=== PATIENT | male | born 1980 | race Caucasian/White ===

== ENCOUNTER 2020-11-03 18:40 | Inpatient (IN) | payer MEDICAID, OTHER ==
[~2020-11-03] VITALS: Ht 175.3 cm; Wt 125.2 kg
[2020-11-03] MEDS ORDERED: SODIUM CHLORIDE 0.9% 500 ML IV ONE (20:15)
[2020-11-03 20:30] LABS: BASOPHILS % 0.2 % (0.0-2.0); HEMOGLOBIN. 16.4 g/dL (14.0-18.0); LYMPHOCYTES % 11.4 % (20.0-50.0); MEAN CORPUSCULAR HEMOGLOBIN 31.4 pg (28.0-32.0); MEAN CORPUSCULAR VOLUME 90.1 fL (80.0-94.0); MEAN PLATELET VOLUME 9.4 fl (7.4-10.4); MONOCYTES % 7.6 % (2.0-8.0); NEUTROPHILS % 80.8 % (40.0-76.0); PLATELET 185 x1000/uL (130-400); RED BLOOD CELL COUNT 5.22 mill/uL (4.7-6.1); RED CELL DISTRIBUTION WIDTH 13.5 % (11.6-14.6)
[2020-11-03 20:36] LABS: CHLORIDE 94 mEq/L (98-107)
[2020-11-03 20:41] LABS: D-DIMER 1.51 mg/L FEU (<0.50); INR 1.2
[2020-11-03] MEDS ORDERED: AZITHROMYCIN 500 MG in DEXT 5% WATER 250 ML IV SCH (21:15)
[2020-11-03] MEDS ORDERED: CEFTRIAXONE 1 G PREMIX 50 ML IV ONE (21:15)
[2020-11-03 22:14] LABS: CLARITY URINE CLEAR (CLEAR); COLOR URINE DARK YELLOW (YELLOW); KETONES URINE NEGATIVE (NEGATIVE); LEUKOCYTE ESTERASE URINE TRACE (NEGATIVE); NITRITE URINE NEGATIVE (NEGATIVE); OCCULT BLOOD URINE 2+ (NEGATIVE); PH URINE 5.5 (4.5-8.0); PROTEIN URINE 3+ (NEGATIVE); SPECIFIC GRAVITY URINE 1.021 (1.005-1.030)
[2020-11-04] MEDS ORDERED: DEXAMETHASONE 4MG/ML 1ML VIAL IV NR
[2020-11-04] MEDS ORDERED: IOHEXOL-350 100 ML BOTTLE ONE (03:02)
[2020-11-04] MEDS ORDERED: NA PHOS,M-B/NA PHOS,DI-BA ENEMA 118ML PR PRN (10:30)
[2020-11-04] MEDS ORDERED: CEFTRIAXONE 1 G PREMIX 50 ML IV SCH (10:30)
[2020-11-04] MEDS ORDERED: ACETAMINOPHEN 650MG SUPP PR PRN ×2 (10:30)
[2020-11-04] MEDS ORDERED: CLONIDINE 0.1MG TABLET PO PRN (10:30)
[2020-11-04] MEDS ORDERED: ENOXAPARIN 40MG/0.4ML SYR SUBCUT SCH (10:30)
[2020-11-04] MEDS ORDERED: DOCUSATE SODIUM 100MG CAPSULE PO PRN (10:30)
[2020-11-04] MEDS ORDERED: ONDANSETRON HCL 4MG/2ML INJ IV PRN (10:30)
[2020-11-04] MEDS ORDERED: MAGNESIUM/ALUMINUM HYDROXIDE/SIMETHICONE 30ML UDC PO PRN (10:30)
[2020-11-04] MEDS: ENOXAPARIN 40MG/0.4ML SYR SUBCUT SCH ×2 (12:03→22:16)
[2020-11-04] MEDS ORDERED: CEFTRIAXONE SODIUM 1 G/VIAL ONE (12:06)
[2020-11-04] MEDS: CEFTRIAXONE 1,000 MG in DEXTROSE 5% WATER 50 ML IV SCH (12:17)
[2020-11-04] MEDS: AZITHROMYCIN 500 MG in DEXT 5% WATER 250 ML IV SCH (12:59)
[2020-11-04 20:48] VITALS: BP 103/64
[2020-11-04] MEDS ORDERED: DEXTROSE 50% WATER 50ML SYRINGE IV PRN (22:15)
[2020-11-04] MEDS ORDERED: POTASSIUM CHLORIDE 20MEQ TABLET SR PO NR (22:15)
[2020-11-04] MEDS: QUETIAPINE FUMARATE 25MG TABLET PO SCH (22:17)
[2020-11-04] MEDS: ASCORBIC ACID 500 MG TABLET PO SCH (22:17)
[2020-11-04] MEDS ORDERED: LISI40TA13 PO (23:12)
[2020-11-04] MEDS ORDERED: FURO80TA3 PO (23:12)
[2020-11-04] MEDS ORDERED: ATOR40TA70 PO (23:12)
[2020-11-04] MEDS ORDERED: CARV25TA47 PO (23:12)
[2020-11-04] MEDS ORDERED: ATORVASTATIN (23:12)
[2020-11-04] MEDS ORDERED: ASPI-1406 PO (23:12)
[2020-11-04] MEDS ORDERED: EMPA25TA PO (23:12)
[2020-11-04] MEDS ORDERED: METF-416 PO (23:13)
[2020-11-04 23:31] LABS: CREATINE KINASE MB FRACTION 2.3 ng/mL (0.5-3.6)
[2020-11-05] VITALS: BP 115/64
[2020-11-05] MEDS: DIPHENHYDRAMINE 50MG/ML VIAL IV PRN ×2 (00:50→21:11)
[2020-11-05 04:00] VITALS: BP 103/57
[2020-11-05] MEDS: BLOOD SUGAR DIAGNOSTIC STRIP TEST SCH ×4 (07:19→21:10)
[2020-11-05 07:26] LABS: HEMATOCRIT. 48.9 % (42.0-52.0); HEMOGLOBIN. 16.3 g/dL (14.0-18.0); MEAN CORPUSCULAR HEMOGLOBIN 30.3 pg (28.0-32.0); MEAN CORPUSCULAR VOLUME 90.8 fL (80.0-94.0); MEAN PLATELET VOLUME 10.2 fl (7.4-10.4); PLATELET 195 x1000/uL (130-400); RED BLOOD CELL COUNT 5.39 mill/uL (4.7-6.1); RED CELL DISTRIBUTION WIDTH 13.7 % (11.6-14.6)
[2020-11-05 07:39] LABS: CHLORIDE 95 mEq/L (98-107)
[2020-11-05 07:47] LABS: LDL CHOLESTEROL 75 mg/dL (5-100)
[2020-11-05 07:50] LABS: HDL CHOLESTEROL 13 mg/dL (40-59)
[2020-11-05 08:00] VITALS: BP 95/59
[2020-11-05] MEDS: QUETIAPINE FUMARATE 25MG TABLET PO SCH ×3 (08:08→21:09)
[2020-11-05] MEDS: DEXAMETHASONE 10 MG/ML VIAL IV SCH (08:08)
[2020-11-05] MEDS: ASCORBIC ACID 500 MG TABLET PO SCH ×2 (08:08→21:09)
[2020-11-05] MEDS: ENOXAPARIN 40MG/0.4ML SYR SUBCUT SCH ×2 (08:08→21:10)
[2020-11-05] MEDS: ASPIRIN 81MG TABLET PO SCH (08:08)
[2020-11-05] MEDS: INSULIN LISPRO 100 UNITS/ML SUBCUT SCH ×4 (08:10→21:10)
[2020-11-05] MEDS ORDERED: DEXAMETHASONE 10 MG/ML VIAL IV SCH (09:00)
[2020-11-05] MEDS ORDERED: FAMOTIDINE 20MG/2ML VIAL IV SCH (09:00)
[2020-11-05] MEDS ORDERED: ERGOCALCIFEROL 50000UNITS CAPSULE PO SCH (09:00)
[2020-11-05 10:27] LABS: BG BASE EXCESS 0.7 mmol/L (-2.0-2.0); BG CARBOXYHEMOGLOBIN 0.2 % (0.5-1.5); BG DEOXYHEMOGLOBIN 5.9 % (0.0-5.0); BG FRACTION INSPIRED OXYGEN 100; BG HCO3 ACT 23.3 mmol/L (22.0-26.0); BG METHEMOGLOBIN 0.3 % (0.0-1.5); BG OXYGEN SATURATION 94.1 % (92.0-98.5); BG OXYHEMOGLOBIN 93.6 % (94.0-97.0); BG PCO2 32.5 mmHg (35.0-45.0); BG PH 7.474 (7.350-7.450); BG PO2 67.8 mmHg (75.0-100.0); BG SAMPLE SITE RIGHT RADIAL; BG TOTAL HEMOGLOBIN 16.8 g/dL (12.0-18.0); BG VENT MODE MASK - NRB
[2020-11-05] MEDS: AZITHROMYCIN 500 MG in DEXT 5% WATER 250 ML IV SCH (10:34)
[2020-11-05] MEDS ORDERED: POTASSIUM CHLORIDE 20MEQ TABLET SR PO NR (11:00)
[2020-11-05] MEDS: GUAIFENESIN 200MG/10ML SUGAR FREE UDC PO PRN (11:44)
[2020-11-05] MEDS: CEFTRIAXONE 1,000 MG in DEXTROSE 5% WATER 50 ML IV SCH (11:44)
[2020-11-05 12:00] VITALS: BP 105/71
[2020-11-05] MEDS: FUROSEMIDE 40MG TABLET PO SCH (14:50)
[2020-11-05 16:00] VITALS: BP 104/69
[2020-11-05 20:00] VITALS: BP 112/65
[2020-11-05] MEDS: FAMOTIDINE 20MG TABLET PO SCH (21:09)
[2020-11-05 22:22] LABS: PLATELET ESTIMATE NORMAL
[2020-11-06] VITALS: BP 95/47
[2020-11-06 04:00] VITALS: BP 109/61
[2020-11-06] MEDS: GUAIFENESIN 200MG/10ML SUGAR FREE UDC PO PRN ×2 (05:31→10:17)
[2020-11-06 08:00] VITALS: BP 119/77
[2020-11-06] MEDS: BLOOD SUGAR DIAGNOSTIC STRIP TEST SCH ×4 (08:16→21:34)
[2020-11-06] MEDS: QUETIAPINE FUMARATE 25MG TABLET PO SCH (08:23)
[2020-11-06] MEDS: FAMOTIDINE 20MG TABLET PO SCH ×2 (08:24→21:40)
[2020-11-06] MEDS: ASPIRIN 81MG TABLET PO SCH (08:24)
[2020-11-06] MEDS: ASCORBIC ACID 500 MG TABLET PO SCH ×2 (08:24→21:40)
[2020-11-06] MEDS: FUROSEMIDE 40MG TABLET PO SCH (08:24)
[2020-11-06] MEDS: ENOXAPARIN 40MG/0.4ML SYR SUBCUT SCH ×2 (08:25→21:40)
[2020-11-06] MEDS: INSULIN LISPRO 100 UNITS/ML SUBCUT SCH ×4 (08:26→21:42)
[2020-11-06] MEDS: ACETAMINOPHEN 650MG/20.3ML UDC GT PRN (10:17)
[2020-11-06] MEDS: DEXAMETHASONE 10 MG/ML VIAL IV SCH (10:23)
[2020-11-06] MEDS: CEFTRIAXONE 1,000 MG in DEXTROSE 5% WATER 50 ML IV SCH (10:23)
[2020-11-06] MEDS: AZITHROMYCIN 500 MG in DEXT 5% WATER 250 ML IV SCH (10:23)
[2020-11-06 12:00] VITALS: BP 95/61
[2020-11-06 15:58] VITALS: BP 106/40
[2020-11-06 20:00] VITALS: BP 142/69
[2020-11-06] MEDS: DIPHENHYDRAMINE 50MG/ML VIAL IV PRN (21:39)
[2020-11-07] VITALS: BP 129/87
[2020-11-07] MEDS ORDERED: AMIODARONE HCL 50MG/ML 3ML VIAL IV ONE (03:45)
[2020-11-07 04:00] VITALS: BP 118/80
[2020-11-07] MEDS ORDERED: AMIODARONE HCL 150 MG in DEXT 5% WATER 100 ML IV ONE (04:00)
[2020-11-07] MEDS: BLOOD SUGAR DIAGNOSTIC STRIP TEST SCH ×4 (07:40→21:21)
[2020-11-07 08:00] VITALS: BP 124/32
[2020-11-07] MEDS: ASPIRIN 81MG TABLET PO SCH (08:52)
[2020-11-07] MEDS: ASCORBIC ACID 500 MG TABLET PO SCH ×2 (08:52→21:19)
[2020-11-07] MEDS: ENOXAPARIN 40MG/0.4ML SYR SUBCUT SCH (08:52)
[2020-11-07] MEDS: DEXAMETHASONE 10 MG/ML VIAL IV SCH (08:52)
[2020-11-07] MEDS: FUROSEMIDE 40MG TABLET PO SCH (08:52)
[2020-11-07] MEDS: FAMOTIDINE 20MG TABLET PO SCH ×2 (08:52→21:20)
[2020-11-07] MEDS: INSULIN LISPRO 100 UNITS/ML SUBCUT SCH ×4 (08:53→21:21)
[2020-11-07] MEDS: ALBUTEROL 6.7GM HFA INHALER ORI PRN (09:09)
[2020-11-07] MEDS: AZITHROMYCIN 500 MG in DEXT 5% WATER 250 ML IV SCH (11:25)
[2020-11-07 12:00] VITALS: BP 106/69
[2020-11-07] MEDS: CEFTRIAXONE 1,000 MG in DEXTROSE 5% WATER 50 ML IV SCH (13:19)
[2020-11-07 16:00] VITALS: BP 124/76
[2020-11-07] MEDS: ACETAMINOPHEN 650MG/20.3ML UDC GT PRN (16:53)
[2020-11-07 20:00] VITALS: BP 121/71
[2020-11-07] MEDS: ENOXAPARIN 30MG/0.3ML SYR SUBCUT SCH (21:19)
[2020-11-07] MEDS: DIPHENHYDRAMINE 50MG/ML VIAL IV PRN (22:59)
[2020-11-08] VITALS: BP 136/93
[2020-11-08] MEDS: GUAIFENESIN 200MG/10ML SUGAR FREE UDC PO PRN ×2 (03:15→22:17)
[2020-11-08 04:00] VITALS: BP 112/80
[2020-11-08 05:51] LABS: CHLORIDE 98 mEq/L (98-107)
[2020-11-08 06:18] LABS: HEMATOCRIT. 49.3 % (42.0-52.0); HEMOGLOBIN. 16.4 g/dL (14.0-18.0); MEAN CORPUSCULAR HEMOGLOBIN 30.8 pg (28.0-32.0); MEAN CORPUSCULAR VOLUME 92.4 fL (80.0-94.0); MEAN PLATELET VOLUME 10.6 fl (7.4-10.4); PLATELET 229 x1000/uL (130-400); RED BLOOD CELL COUNT 5.33 mill/uL (4.7-6.1); RED CELL DISTRIBUTION WIDTH 13.3 % (11.6-14.6)
[2020-11-08] MEDS: BLOOD SUGAR DIAGNOSTIC STRIP TEST SCH ×4 (07:16→21:36)
[2020-11-08 08:00] VITALS: BP 114/82
[2020-11-08] MEDS: ASPIRIN 81MG TABLET PO SCH (08:15)
[2020-11-08] MEDS: ASCORBIC ACID 500 MG TABLET PO SCH ×2 (08:15→22:04)
[2020-11-08] MEDS: FUROSEMIDE 40MG TABLET PO SCH (08:15)
[2020-11-08] MEDS: ENOXAPARIN 30MG/0.3ML SYR SUBCUT SCH ×2 (08:15→22:04)
[2020-11-08] MEDS: FAMOTIDINE 20MG TABLET PO SCH ×2 (08:15→22:04)
[2020-11-08] MEDS: DEXAMETHASONE 10 MG/ML VIAL IV SCH (08:15)
[2020-11-08] MEDS: INSULIN LISPRO 100 UNITS/ML SUBCUT SCH ×4 (08:16→22:03)
[2020-11-08 10:03] LABS: PLATELET ESTIMATE NORMAL
[2020-11-08] MEDS: CEFTRIAXONE 1,000 MG in DEXTROSE 5% WATER 50 ML IV SCH (11:44)
[2020-11-08 12:00] VITALS: BP 116/83
[2020-11-08 16:00] VITALS: BP 116/83
[2020-11-08] MEDS: IVERMECTIN 3 MG TABLET PO SCH (16:44)
[2020-11-08 20:00] VITALS: BP 119/62
[2020-11-08] MEDS: DIPHENHYDRAMINE 50MG/ML VIAL IV PRN (22:17)
[2020-11-09 00:23] VITALS: BP 121/76
[2020-11-09 04:00] VITALS: BP 126/79
[2020-11-09] MEDS: BLOOD SUGAR DIAGNOSTIC STRIP TEST SCH ×4 (07:40→21:47)
[2020-11-09 08:00] VITALS: BP 139/64
[2020-11-09] MEDS: INSULIN LISPRO 100 UNITS/ML SUBCUT SCH ×4 (08:43→21:18)
[2020-11-09] MEDS: ASPIRIN 81MG TABLET PO SCH (08:44)
[2020-11-09] MEDS: DEXAMETHASONE 10 MG/ML VIAL IV SCH (08:44)
[2020-11-09] MEDS: ASCORBIC ACID 500 MG TABLET PO SCH ×2 (08:44→21:47)
[2020-11-09] MEDS: FUROSEMIDE 40MG TABLET PO SCH (08:44)
[2020-11-09] MEDS: ENOXAPARIN 30MG/0.3ML SYR SUBCUT SCH ×2 (08:44→21:16)
[2020-11-09] MEDS: FAMOTIDINE 20MG TABLET PO SCH ×2 (08:44→21:16)
[2020-11-09] MEDS: CEFTRIAXONE 1,000 MG in DEXTROSE 5% WATER 50 ML IV SCH (11:40)
[2020-11-09 12:00] VITALS: BP 118/83
[2020-11-09 16:00] VITALS: BP 110/70
[2020-11-09] MEDS: IVERMECTIN 3 MG TABLET PO SCH (16:29)
[2020-11-09 20:00] VITALS: BP 139/95
[2020-11-09] MEDS: DIPHENHYDRAMINE 50MG/ML VIAL IV PRN (21:18)
[2020-11-09] MEDS: ALBUTEROL 6.7GM HFA INHALER ORI PRN (21:24)
[2020-11-10] VITALS: BP 121/79
[2020-11-10] MEDS: ALBUTEROL 6.7GM HFA INHALER ORI PRN (01:29)
[2020-11-10] MEDS: GUAIFENESIN 200MG/10ML SUGAR FREE UDC PO PRN ×2 (03:27→13:38)
[2020-11-10] MEDS: ACETAMINOPHEN 650MG/20.3ML UDC GT PRN (03:35)
[2020-11-10 04:00] VITALS: BP 139/95
[2020-11-10] MEDS: BLOOD SUGAR DIAGNOSTIC STRIP TEST SCH ×4 (06:48→20:26)
[2020-11-10 08:00] VITALS: BP 116/73
[2020-11-10] MEDS: INSULIN LISPRO 100 UNITS/ML SUBCUT SCH ×4 (08:21→20:26)
[2020-11-10] MEDS: DEXAMETHASONE 10 MG/ML VIAL IV SCH (08:22)
[2020-11-10] MEDS: FUROSEMIDE 40MG TABLET PO SCH (08:22)
[2020-11-10] MEDS: ASCORBIC ACID 500 MG TABLET PO SCH ×2 (08:22→20:25)
[2020-11-10] MEDS: ASPIRIN 81MG TABLET PO SCH (08:22)
[2020-11-10] MEDS: FAMOTIDINE 20MG TABLET PO SCH ×2 (08:22→20:25)
[2020-11-10] MEDS: ENOXAPARIN 30MG/0.3ML SYR SUBCUT SCH ×2 (08:23→20:26)
[2020-11-10 12:00] VITALS: BP 144/78
[2020-11-10 16:00] VITALS: BP 131/75
[2020-11-10] MEDS: IVERMECTIN 3 MG TABLET PO SCH (16:30)
[2020-11-10] MEDS: LORAZEPAM 0.5MG TABLET PO PRN (19:44)
[2020-11-10 20:00] VITALS: BP 122/76
[2020-11-10] MEDS: DIPHENHYDRAMINE 50MG/ML VIAL IV PRN (21:42)
[2020-11-10] MEDS: INSULIN GLARGINE UD 100 UNITS/ML SYR SUBCUT SCH (21:43)
[2020-11-11] VITALS: BP 109/76
[2020-11-11 04:00] VITALS: BP 113/64
[2020-11-11] MEDS: BLOOD SUGAR DIAGNOSTIC STRIP TEST SCH ×4 (07:10→21:31)
[2020-11-11 07:51] VITALS: BP 114/87
[2020-11-11] MEDS: ASPIRIN 81MG TABLET PO SCH (08:46)
[2020-11-11] MEDS: DEXAMETHASONE 10 MG/ML VIAL IV SCH (08:46)
[2020-11-11] MEDS: ASCORBIC ACID 500 MG TABLET PO SCH ×2 (08:46→21:31)
[2020-11-11] MEDS: FUROSEMIDE 40MG TABLET PO SCH (08:46)
[2020-11-11] MEDS: ALBUTEROL 6.7GM HFA INHALER ORI PRN (08:46)
[2020-11-11] MEDS: FAMOTIDINE 20MG TABLET PO SCH ×2 (08:46→21:31)
[2020-11-11] MEDS: ACETAMINOPHEN 650MG/20.3ML UDC GT PRN (08:47)
[2020-11-11] MEDS: ENOXAPARIN 30MG/0.3ML SYR SUBCUT SCH ×2 (08:47→21:31)
[2020-11-11] MEDS: INSULIN LISPRO 100 UNITS/ML SUBCUT SCH ×4 (08:49→21:32)
[2020-11-11] MEDS: INSULIN GLARGINE UD 100 UNITS/ML SYR SUBCUT SCH ×2 (10:06→21:32)
[2020-11-11 11:54] VITALS: BP 121/78
[2020-11-11] MEDS ORDERED: INSULIN LISPRO 100 UNITS/ML SUBCUT SCH (12:30)
[2020-11-11 15:54] VITALS: BP 137/93
[2020-11-11] MEDS: IVERMECTIN 3 MG TABLET PO SCH (17:12)
[2020-11-11 20:00] VITALS: BP 143/89
[2020-11-11] MEDS: GUAIFENESIN 200MG/10ML SUGAR FREE UDC PO PRN (21:32)
[2020-11-11] MEDS: DIPHENHYDRAMINE 50MG/ML VIAL IV PRN (21:33)
[2020-11-12] VITALS: BP 125/80
[2020-11-12 04:00] VITALS: BP 130/93
[2020-11-12] MEDS: LORAZEPAM 0.5MG TABLET PO PRN (04:20)
[2020-11-12] MEDS ORDERED: PROPOFOL 10MG/ML 100ML 100 ML IV PRN ×2 (08:00)
[2020-11-12] MEDS ORDERED: IPRATROPIUM/ALBUTEROL 0.5-3(2.5)MG/3ML NEB HHN SCH (08:00)
[2020-11-12] MEDS ORDERED: IPRATROPIUM/ALBUTEROL 0.5-3(2.5)MG/3ML NEB HHN PRN (08:00)
[2020-11-12] MEDS ORDERED: FENTANYL CITRATE/PF 2,500 MCG in SODIUM CHLORIDE 0.9% 200 ML IV PRN (08:00)
[2020-11-12] MEDS ORDERED: MIDAZOLAM HCL 100 MG in SODIUM CHLORIDE 0.9% 80 ML IV PRN (08:00)
[2020-11-12 08:15] VITALS: BP 120/54
[2020-11-12] MEDS ORDERED: CALCIUM CHLORIDE 1GM/10ML SYR IV ONE (08:30)
[2020-11-12] MEDS ORDERED: MAGNESIUM SULFATE 4G IN WATER 100ML PREMIX IV ONE (08:30)
[2020-11-12] MEDS ORDERED: AMIODARONE HCL 50MG/ML 3ML VIAL IV ONE (08:30)
[2020-11-12] MEDS ORDERED: LIDOCAINE HCL 2% 5ML SYRINGE IV ONE (08:30)
[2020-11-12] MEDS ORDERED: EPINEPHRINE 0.1MG/ML (1:10,000) 10ML SYR ONE (08:30)
[2020-11-12] MEDS ORDERED: SODIUM BICARBONATE 8.4% 1 MEQ/ML 50ML SYR IV ONE (08:30)
[2020-11-12 08:37] VITALS: BP 76/54
[2020-11-12] MEDS ORDERED: AMIODARONE HCL 900 MG in DEXT 5% WATER 500 ML IV PRN (09:30)
[2020-11-12] MEDS ORDERED: EPINEPHRINE 10 MG in SODIUM CHLORIDE 0.9% 240 ML IV PRN (09:30)
[2020-11-12] MEDS ORDERED: PHENYLEPHRINE 100 MG in DEXT 5% WATER 240 ML IV PRN (09:30)
[2020-11-12] MEDS ORDERED: ETOMIDATE 2MG/ML 10ML VIAL IV ONE (15:03)
[2020-11-12] MEDS ORDERED: SUCCINYLCHOLINE CHLORIDE 200MG/10ML IV ONE (15:03)
== END 2020-11-12 09:30 | DRG 720 ==
LOC: ER 18:40 → MICUSO 23:57 → 7WST 11-04 19:37 → MICUSO 11-12 07:50
PROVIDERS: ADMIT Family Medicine; ATTEND Family Medicine
PROC: 5A09357 Assistance with Respiratory Ventilation, Less than 24 Consecutive Hours, Continuous Positive Airway Pressure (ICD-10-PCS; principal; 2020-11-04)
PROC: 5A09457 Assistance with Respiratory Ventilation, 24-96 Consecutive Hours, Continuous Positive Airway Pressure (ICD-10-PCS; 2020-11-06)
PROC: 5A0945A Assistance with Respiratory Ventilation, 24-96 Consecutive Hours, High Flow/Velocity Cannula (ICD-10-PCS; 2020-11-07)
PROC: 5A1935Z Respiratory Ventilation, Less than 24 Consecutive Hours (ICD-10-PCS; 2020-11-12)
PROC: 06HY33Z Insertion of Infusion Device into Lower Vein, Percutaneous Approach (ICD-10-PCS; 2020-11-12)
PROC: 5A12012 Performance of Cardiac Output, Single, Manual (ICD-10-PCS; 2020-11-12)
PROC: 0BH17EZ Insertion of Endotracheal Airway into Trachea, Via Natural or Artificial Opening (ICD-10-PCS; 2020-11-12)
PROC: 5A2204Z Restoration of Cardiac Rhythm, Single (ICD-10-PCS; 2020-11-12)
DX: A41.89 Other specified sepsis (principal); J96.01 Acute respiratory failure with hypoxia; J12.82 Pneumonia due to coronavirus disease 2019; U07.1 COVID-19; E44.0 Moderate protein-calorie malnutrition; I21.4 Non-ST elevation (NSTEMI) myocardial infarction; I50.23 Acute on chronic systolic (congestive) heart failure; E11.9 Type 2 diabetes mellitus without complications; E66.9 Obesity, unspecified; I46.2 Cardiac arrest due to underlying cardiac condition; E87.1 Hypo-osmolality and hyponatremia; E87.2 Acidosis; E87.6 Hypokalemia; I11.0 Hypertensive heart disease with heart failure; K76.0 Fatty (change of) liver, not elsewhere classified; R65.20 Severe sepsis without septic shock; I49.01 Ventricular fibrillation; Z79.899 Other long term (current) drug therapy; Z68.41 Body mass index [BMI] 40.0-44.9, adult
CPT/HCPCS: 36415; 36600; 71045; 71275; 80048; 80053; 80061; 81003; 82375; 82550; 82553; 82805; 82962; 83036; 83605; 83735; 83880; 84132; 84145; 84484; 85025; 85379; 87426; 92950; 93005; 94002; 94640; 94660; 99285; C1893; J0282; J0330; J0456; J0696; J1100; J1200; J1650; J1815; J2704; J3475; J3490; J7040; J7060; Q9967; U0003; U0005; A4315